=== PATIENT | female | born 1940 | race Caucasian/White ===

== ENCOUNTER 2017-11-08 16:45 | Inpatient (IN) | payer MEDICARE, OTHER ==
[~2017-11-08] VITALS: Ht 165.1 cm; Wt 77.1 kg
[~2017-11-08 16:45] MED LIST: ATOR20; CRUTCH USE; PROACE100 PO; SILSUL1TC TOP; TELM40
[2017-11-08] MEDS ORDERED: ASPI81CH (17:11)
[2017-11-08] MEDS ORDERED: ANAS1 PO (17:11)
[2017-11-08] MEDS ORDERED: RANI150 (17:23)
[2017-11-08] MEDS ORDERED: ROSU10TA PO (17:24)
[2017-11-08] MEDS ORDERED: VENL75ER (17:24)
[2017-11-08] MEDS ORDERED: TELM40 (17:24)
[2017-11-08 17:30] LABS: BASOPHILS ABSOLUTE AUTO 0.05 K/mm3 (0.00-0.23); BASOPHILS PERCENT AUTO 1 % (0-2); EOSINOPHILS ABSOLUTE AUTO 0.16 K/mm3 (0.00-0.68); EOSINOPHILS PERCENT AUTO 2 % (0-6); Hematocrit 26.6 % (33.0-51.0); IMMATURE GRAN ABSOLUTE AUTO 0.02 K/mm3 (0.00-0.10); IMMATURE GRAN PERCENT AUTO 0 % (0-1); LYMPHOCYTES ABSOLUTE AUTO 1.74 K/mm3 (0.84-5.20); LYMPHOCYTES PERCENT AUTO 19 % (21-46); MONOCYTES ABSOLUTE AUTO 1.09 K/mm3 (0.16-1.47); MONOCYTES PERCENT AUTO 12 % (4-13); Mean Corpuscular HGB 26.5 pg (26.0-34.0); Mean Corpuscular HGB Conc 30.1 g/dL (31.5-36.5); Mean Corpuscular Volume 88 fL (80-100); Mean Platelet Volume 9.2 fL (9.1-12.4); NEUTROPHILS ABSOLUTE AUTO 6.15 K/mm3 (1.96-9.15); NEUTROPHILS PERCENT AUTO 67 % (41-73); Platelet Count 379 K/mm3 (150-400); RDW Coefficient Variation 16.2 % (11.7-14.2); RDW Standard Deviation 52.7 fL (35.1-46.3); Red Blood Cell Count 3.02 M/mm3 (3.80-5.20); White Blood Cell Count 9.21 K/mm3 (4.00-11.30)
[2017-11-08 17:54] LABS: Alanine Aminotransfer (ALT/SGP 15 U/L (12-78); Albumin, Blood 3.5 g/dL (3.4-5.0); Albumin/Globulin Ratio 0.9 (0.8-1.8); Alk Phos 90 U/L (50-136); Anion Gap 9 mmol/L (6-16); Aspartate Aminotrans (AST/SGOT 14 U/L (12-37); Bilirubin, Total 0.4 mg/dL (0.1-1.0); Blood Urea Nitrogen 28 mg/dL (8-24); Bun/Creatinine Ratio 20.4 (12.0-20.0); CO2, Blood 24 mmol/L (21-32); Calcium, Blood 8.6 mg/dL (8.5-10.1); Chloride, Blood 107 mmol/L (98-108); Creatinine, Blood 1.37 mg/dL (0.40-1.00); Globulin, Blood 4.1 g/dL (2.2-4.0); Glomerular Filtration Rate 39 (60-); Glucose, Blood 120 mg/dL (70-99); Potassium, Blood 4.6 mmol/L (3.5-5.5); Sodium, Blood 140 mmol/L (136-145); Total Protein, Blood 7.6 g/dL (6.4-8.2); Troponin I <0.015 ng/mL (0.000-0.040)
[2017-11-08 17:57] LABS: Base Excess Venous -0.4 mmol/L; Bicarbonate Venous 23.8 mmol/L (24.0-30.0); PCO2 Venous 38.3 mmHg (38-42); PO2 Venous 37.9 mmHg (38-42); pH Blood Venous 7.41 (7.34-7.37)
[2017-11-08 21:10] LABS: Percent Saturation 2.5 % (15.0-50.0)
[2017-11-08] MEDS ORDERED: TELM40 PO (21:26)
[2017-11-08] MEDS ORDERED: INSULANPEN (23:18)
[2017-11-08] MEDS ORDERED: Hair, Skin & N1 EACH PO (23:19)
[2017-11-08] MEDS ORDERED: NASACORT10.8 ML (23:20)
[2017-11-08] MEDS ORDERED: CHOL10002 (23:22)
[2017-11-09 02:57] LABS: BASOPHILS ABSOLUTE AUTO 0.05 K/mm3 (0.00-0.23); BASOPHILS PERCENT AUTO 1 % (0-2); EOSINOPHILS ABSOLUTE AUTO 0.22 K/mm3 (0.00-0.68); EOSINOPHILS PERCENT AUTO 2 % (0-6); Hematocrit 28.4 % (33.0-51.0); Hemoglobin 8.9 g/dL (11.5-16.0); IMMATURE GRAN ABSOLUTE AUTO 0.02 K/mm3 (0.00-0.10); IMMATURE GRAN PERCENT AUTO 0 % (0-1); LYMPHOCYTES ABSOLUTE AUTO 3.26 K/mm3 (0.84-5.20); LYMPHOCYTES PERCENT AUTO 35 % (21-46); MONOCYTES ABSOLUTE AUTO 0.77 K/mm3 (0.16-1.47); MONOCYTES PERCENT AUTO 8 % (4-13); Mean Corpuscular HGB Conc 31.3 g/dL (31.5-36.5); Mean Corpuscular Volume 86 fL (80-100); Mean Platelet Volume 9.1 fL (9.1-12.4); NEUTROPHILS ABSOLUTE AUTO 4.94 K/mm3 (1.96-9.15); NEUTROPHILS PERCENT AUTO 53 % (41-73); Platelet Count 307 K/mm3 (150-400); RDW Coefficient Variation 15.5 % (11.7-14.2); RDW Standard Deviation 49.3 fL (35.1-46.3); White Blood Cell Count 9.26 K/mm3 (4.00-11.30)
[2017-11-09 03:10] LABS: International Normalized Ratio 1.05; Prothrombin Time Results 10.9 Sec (9.7-11.5)
[2017-11-09 03:19] LABS: Albumin, Blood 3.4 g/dL (3.4-5.0); Anion Gap 7 mmol/L (6-16); Blood Urea Nitrogen 22 mg/dL (8-24); Bun/Creatinine Ratio 20.8 (12.0-20.0); CO2, Blood 26 mmol/L (21-32); Calcium, Blood 8.1 mg/dL (8.5-10.1); Chloride, Blood 105 mmol/L (98-108); Creatinine, Blood 1.06 mg/dL (0.40-1.00); Glomerular Filtration Rate 53 (60-); Glucose, Blood 82 mg/dL (70-99); Phosphorus, Blood 2.7 mg/dL (2.5-4.9); Potassium, Blood 4.1 mmol/L (3.5-5.5); Sodium, Blood 138 mmol/L (136-145)
[2017-11-09 12:40] LABS: Hematocrit 29.5 % (33.0-51.0); Hemoglobin 9.2 g/dL (11.5-16.0)
== END 2017-11-09 19:00 | disposition home or self-care (01) | DRG 378 ==
LOC: ER 16:45 → PCU 19:29
PROVIDERS: Emergency Medicine; Family Medicine; Internal Medicine Gastroenterology
PROC: 0DJ08ZZ Inspection of Upper Intestinal Tract, Via Natural or Artificial Opening Endoscopic (ICD-10-PCS; principal; 2017-11-09 10:00)
DX: K29.61 Other gastritis with bleeding (principal); D62 Acute posthemorrhagic anemia; E11.22 Type 2 diabetes mellitus with diabetic chronic kidney disease; N18.3 Chronic kidney disease, stage 3 (moderate); K44.9 Diaphragmatic hernia without obstruction or gangrene; K25.4 Chronic or unspecified gastric ulcer with hemorrhage; K29.81 Duodenitis with bleeding; K22.2 Esophageal obstruction; I12.9 Hypertensive chronic kidney disease with stage 1 through stage 4 chronic kidney disease, or unspecified chronic kidney disease; G47.33 Obstructive sleep apnea (adult) (pediatric); M54.40 Lumbago with sciatica, unspecified side; E78.5 Hyperlipidemia, unspecified; Z87.891 Personal history of nicotine dependence; Z88.4 Allergy status to anesthetic agent; Z79.811 Long term (current) use of aromatase inhibitors; Z79.82 Long term (current) use of aspirin; Z79.4 Long term (current) use of insulin; Z79.899 Other long term (current) drug therapy
CPT/HCPCS: 36415; 36430; 71046; 80053; 80069; 82272; 82607; 82728; 82746; 82803; 82947; 83540; 83550; 83880; 84443; 84484; 85014; 85018; 85025; 85610; 86850; 86900; 86901; 86923; 93005; 93010; 94762; 96365; 96376; 99285; C9113; J2250; J7030; J7120; P9016

== ENCOUNTER 2018-01-15 11:31 | Day surgery (SDC) | payer MEDICARE, OTHER ==
[~2018-01-15] VITALS: Ht 152.4 cm; Wt 83.1 kg
[~2018-01-15 11:31] MED LIST changes: +ANAS1 PO; +ASPI81CH; +CHOL10002; +Hair, Skin & N1 EACH PO; +INSULANPEN; +NASACORT10.8 ML; +RANI150; +ROSU10TA PO; +TELM40 PO; +VENL75ER
== END 2018-01-15 14:05 | disposition home or self-care (01) ==
LOC: ORSCSDS 11:31
PROVIDERS: Internal Medicine Gastroenterology
PROC: 0DB68ZX Excision of Stomach, Via Natural or Artificial Opening Endoscopic, Diagnostic (ICD-10-PCS; principal; 2018-01-15 13:00)
PROC: 0DBP8ZX Excision of Rectum, Via Natural or Artificial Opening Endoscopic, Diagnostic (ICD-10-PCS; principal; 2018-01-15 13:00)
PROC: 0DB98ZX Excision of Duodenum, Via Natural or Artificial Opening Endoscopic, Diagnostic (ICD-10-PCS; principal; 2018-01-15 13:00)
PROC: 0DBK8ZX Excision of Ascending Colon, Via Natural or Artificial Opening Endoscopic, Diagnostic (ICD-10-PCS; principal; 2018-01-15 13:00)
DX: D64.9 Anemia, unspecified (principal); K29.70 Gastritis, unspecified, without bleeding; K44.9 Diaphragmatic hernia without obstruction or gangrene; Q40.8 Other specified congenital malformations of upper alimentary tract; D12.2 Benign neoplasm of ascending colon; K62.1 Rectal polyp; D37.4 Neoplasm of uncertain behavior of colon; K64.8 Other hemorrhoids; K57.30 Diverticulosis of large intestine without perforation or abscess without bleeding; K21.9 Gastro-esophageal reflux disease without esophagitis; E11.9 Type 2 diabetes mellitus without complications; E78.5 Hyperlipidemia, unspecified; I10 Essential (primary) hypertension; G47.33 Obstructive sleep apnea (adult) (pediatric); Z86.010 Personal history of colon polyps; Z87.11 Personal history of peptic ulcer disease; Z79.82 Long term (current) use of aspirin; Z79.4 Long term (current) use of insulin; Z79.899 Other long term (current) drug therapy; Z87.891 Personal history of nicotine dependence
CPT/HCPCS: 82947; 88305; 88342; J7120

== ENCOUNTER 2018-02-06 11:22 | Day surgery (SDC) | payer MEDICARE, OTHER ==
[~2018-02-06] VITALS: Ht 152.4 cm; Wt 86.4 kg
[2018-02-06] MEDS ORDERED: TELMISARTAN-HC1 EACH PO (12:18)
[2018-02-06] MEDS ORDERED: Stool Softener100 MG PO (12:19)
[2018-02-06] MEDS ORDERED: IRON150C PO (12:20)
[2018-02-06] MEDS ORDERED: PANT40 PO (12:22)
== END 2018-02-06 13:41 | disposition home or self-care (01) ==
LOC: ORSCSDS 11:22
PROVIDERS: Ophthalmology
PROC: 08RK3JZ Replacement of Left Lens with Synthetic Substitute, Percutaneous Approach (ICD-10-PCS; principal; 2018-02-06 13:00)
DX: H25.12 Age-related nuclear cataract, left eye (principal); E11.9 Type 2 diabetes mellitus without complications; I10 Essential (primary) hypertension; D64.9 Anemia, unspecified; E66.9 Obesity, unspecified; Z68.37 Body mass index [BMI] 37.0-37.9, adult; Z87.891 Personal history of nicotine dependence; Z79.82 Long term (current) use of aspirin; Z79.4 Long term (current) use of insulin; Z79.899 Other long term (current) drug therapy
CPT/HCPCS: 82947; J2250; J3010; V2632

== ENCOUNTER 2018-02-20 09:58 | Day surgery (SDC) | payer MEDICARE, OTHER ==
[~2018-02-20] VITALS: Ht 152.4 cm; Wt 84.7 kg
[~2018-02-20 09:58] MED LIST changes: +IRON150C PO; +PANT40 PO; +Stool Softener100 MG PO; +TELMISARTAN-HC1 EACH PO
== END 2018-02-20 12:26 | disposition home or self-care (01) ==
LOC: ORSCSDS 09:58
PROVIDERS: Ophthalmology
PROC: 08RJ3JZ Replacement of Right Lens with Synthetic Substitute, Percutaneous Approach (ICD-10-PCS; principal; 2018-02-20 12:00)
DX: H25.11 Age-related nuclear cataract, right eye (principal); H21.81 Floppy iris syndrome; E11.9 Type 2 diabetes mellitus without complications; I10 Essential (primary) hypertension; Z79.82 Long term (current) use of aspirin; Z79.4 Long term (current) use of insulin; Z79.899 Other long term (current) drug therapy
CPT/HCPCS: 82947; J2250; J3010; J7120; V2632

== ENCOUNTER 2020-10-04 09:16 | Day surgery (SDC) | payer MEDICARE, OTHER ==
[~2020-10-04] VITALS: Ht 152.4 cm; Wt 80.6 kg
[~2020-10-04 09:16] MED LIST changes: +Aspir 8181 MG PO; +BASAGLAR K100 UNIT/1; +Crestor40 MG PO; +DOCU100 PO; +METF500 PO; +MICARDIS HCT 41 EACH PO; +VENL75ER PO
--- NOTE | 2020-10-04 10:12 | NUR ---
10/04/20 Criss2 Yandel Lopez CALL LIGHT WITHIN REACH
== END 2020-10-04 12:20 | disposition home or self-care (01) ==
LOC: ORSCSDS 09:16
PROVIDERS: Ophthalmology
PROC: 080NXZZ Alteration of Right Upper Eyelid, External Approach (ICD-10-PCS; principal; 2020-10-04 11:15)
PROC: 080PXZZ Alteration of Left Upper Eyelid, External Approach (ICD-10-PCS; principal; 2020-10-04 11:15)
DX: H02.831 Dermatochalasis of right upper eyelid (principal); H02.834 Dermatochalasis of left upper eyelid; I10 Essential (primary) hypertension; E11.9 Type 2 diabetes mellitus without complications; E66.9 Obesity, unspecified; Z68.34 Body mass index [BMI] 34.0-34.9, adult; Z79.84 Long term (current) use of oral hypoglycemic drugs; Z79.899 Other long term (current) drug therapy; Z79.4 Long term (current) use of insulin
CPT/HCPCS: 82947; J2250; J2704; J3010; J7040

== ENCOUNTER 2025-02-22 14:29 | Observation (INO) | payer MEDICARE, OTHER ==
[~2025-02-22] VITALS: Ht 152.4 cm; Wt 66.2 kg
[2025-02-22] MEDS ORDERED: NS 1,000 ML BAG IR ONE (15:20)
[2025-02-22] MEDS ORDERED: NS 1,000 ML IV SCH (15:25)
[2025-02-22 15:46] LABS: Albumin, Blood 3.5 g/dL (3.4-5.0); Albumin/Globulin Ratio 0.9 (0.8-1.8); Bilirubin, Total 0.5 mg/dL (0.1-1.0); Bun/Creatinine Ratio 18.7 (12.0-20.0); Creatinine, Blood 1.34 mg/dL (0.40-1.00); Globulin, Blood 3.9 g/dL (2.2-4.0); Potassium, Blood 4.4 mmol/L (3.5-5.5); Total Protein, Blood 7.4 g/dL (6.4-8.2)
[2025-02-22 15:55] LABS: BASOPHILS ABSOLUTE AUTO 0.05 K/mm3 (0.00-0.23); BASOPHILS PERCENT AUTO 0 % (0-2); EOSINOPHILS ABSOLUTE AUTO 0.06 K/mm3 (0.00-0.68); EOSINOPHILS PERCENT AUTO 1 % (0-6); Hematocrit 27.1 % (33.0-51.0); Hemoglobin 7.9 g/dL (11.5-16.0); IMMATURE GRAN ABSOLUTE AUTO 0.08 K/mm3 (0.00-0.10); IMMATURE GRAN PERCENT AUTO 1 % (0-1); LYMPHOCYTES PERCENT AUTO 8 % (21-46); MONOCYTES ABSOLUTE AUTO 0.61 K/mm3 (0.16-1.47); MONOCYTES PERCENT AUTO 5 % (4-13); Mean Corpuscular HGB 23.6 pg (26.0-34.0); Mean Corpuscular HGB Conc 29.2 g/dL (31.5-36.5); Mean Corpuscular Volume 81 fL (80-100); Mean Platelet Volume 9.5 fL (9.1-12.4); NEUTROPHILS ABSOLUTE AUTO 9.65 K/mm3 (1.96-9.15); NEUTROPHILS PERCENT AUTO 85 % (41-73); Platelet Count 303 K/mm3 (150-400); RDW Standard Deviation 50.4 fL (35.1-46.3); Red Blood Cell Count 3.35 M/mm3 (3.80-5.20); White Blood Cell Count 11.35 K/mm3 (4.00-11.30)
[2025-02-22] MEDS ORDERED: Pantoprazole Sodium 40 MG Injection IV ONE (16:45)
[2025-02-22] MEDS ORDERED: HYDROCODONE-AC1 EA19 PO (20:01)
[2025-02-22] MEDS ORDERED: INSULANI SC (20:03)
[2025-02-22 20:07] VITALS: BP 117/50
[2025-02-22 20:21] LABS: Hematocrit 26.4 % (33.0-51.0); Hemoglobin 7.8 g/dL (11.5-16.0)
[2025-02-23] VITALS (10 sets, daily range): BP systolic 108–144; BP diastolic 51–78
--- NOTE | 2025-02-23 04:14 | NUR ---
PATIENT UP TO BATHROOM. WHEN SHE GOT BACK SHE STATES "I CAN'T WEAR THAT!" POINTING TO THE C-PAP. SHE HAD IT ON FOR ONLY A VERY SHORT TIME. O2 VIA NC WAS PLACED AT 3 LITERS.
[2025-02-23] MEDS ORDERED: Pantoprazole Sodium 40 MG Injection IV SCH (06:00)
--- NOTE | 2025-02-23 06:11 | NUR ---
85 Y/O FEMALE ADMITTED LAST NIGHT TO ROOM 301 FROM ED. PATIENT FELL WHILE WALKING INTO THE DENTIST OFFICE YESTERDAY. FOUND TO HAVE A LOW HGB AND HYPOTENSIVE. PATIENT IS ALERT, ORIENTATED. ABLE TO MAKE NEEDS KNOW. DOES NOT USUALLY WEAR O2 AT NIGHT BUT DESATS WHILE ASLEEP. C-PAP WAS PLACED ON PATIENT BUT SHE DID NOT WANT IT ON AND ASKED FOR IT TO BE TAKEN OFF. PATIENT IS WEAK WITH AMBULATION, NEEDS SBA AND A WALKER. ON TELE SR CLEAR LIQUID DIET. CONTINUE CARE
[2025-02-23 06:20] LABS: BASOPHILS ABSOLUTE AUTO 0.04 K/mm3 (0.00-0.23); BASOPHILS PERCENT AUTO 1 % (0-2); EOSINOPHILS ABSOLUTE AUTO 0.16 K/mm3 (0.00-0.68); EOSINOPHILS PERCENT AUTO 2 % (0-6); Hematocrit 24.2 % (33.0-51.0); Hemoglobin 7.2 g/dL (11.5-16.0); IMMATURE GRAN ABSOLUTE AUTO 0.03 K/mm3 (0.00-0.10); IMMATURE GRAN PERCENT AUTO 0 % (0-1); LYMPHOCYTES ABSOLUTE AUTO 0.97 K/mm3 (0.84-5.20); LYMPHOCYTES PERCENT AUTO 11 % (21-46); MONOCYTES ABSOLUTE AUTO 0.57 K/mm3 (0.16-1.47); MONOCYTES PERCENT AUTO 6 % (4-13); Mean Corpuscular HGB 23.2 pg (26.0-34.0); Mean Corpuscular HGB Conc 29.8 g/dL (31.5-36.5); Mean Corpuscular Volume 78 fL (80-100); Mean Platelet Volume 9.3 fL (9.1-12.4); NEUTROPHILS ABSOLUTE AUTO 7.08 K/mm3 (1.96-9.15); NEUTROPHILS PERCENT AUTO 80 % (41-73); Platelet Count 248 K/mm3 (150-400); RDW Coefficient Variation 17.1 % (11.7-14.2); White Blood Cell Count 8.85 K/mm3 (4.00-11.30)
[2025-02-23 06:45] LABS: Calcium, Blood 7.8 mg/dL (8.5-10.1); Creatinine, Blood 1.21 mg/dL (0.40-1.00); Potassium, Blood 3.9 mmol/L (3.5-5.5)
[2025-02-23] MEDS ORDERED: Insulin Regular 100 UNIT/ML 10ML Vial SC SCH (07:30)
[2025-02-23] MEDS ORDERED: Lactated Ringer's 1,000 ML IV SCH (08:35)
[2025-02-23] MEDS ORDERED: HYDROcodone 5-APAP 325 TAB PO PRN (09:10)
[2025-02-23] MEDS ORDERED: Sod Ferric Gluc Complx/Sucrose 125 MG in NS 100 ML IV SCH (09:11)
[2025-02-23] MEDS ORDERED: Anastrozole 1 MG TAB PO SCH (09:19)
[2025-02-23] MEDS ORDERED: Venlafaxine HCl 75 MG CapCR PO SCH (09:20)
[2025-02-23] MEDS ORDERED: NS 250 ML IV PRN (09:50)
[2025-02-23 12:25] LABS: Hematocrit 25.3 % (33.0-51.0); Hemoglobin 7.6 g/dL (11.5-16.0)
--- NOTE | 2025-02-23 14:03 | NUR ---
PT ABLE TO TRANSFER TO /C WITH STANDBY ASSISTANCE. History, Chart, Medications and Allergies reviewed before start of procedure. Pre-Op teaching done. Pt verbalizes understanding. Patient confirms NPO status and agrees with scheduled surgery. ALL BELONGINGS LEFT IN PT'S ROOM. PT HAS BACK PAIN OF 5/10 WHICH SHE REPORTS "BETTER THAN YESTERDAY". NO NAUSEA REPORTED.
[2025-02-23] MEDS ORDERED: propofoL 50 ML IV ONE (14:16)
--- NOTE | 2025-02-23 14:20 | NUR ---
02/23/25 1420 Vincent Flores History, Chart, Medications and Allergies reviewed before start of procedure. MONITOR INTACT WITH CONTINUOUS PULSE OXIMETRY, CONTINUOUS END TITAL CO2, 3-LEAD EKG AND INTERMITTENT BLOOD PRESSURE. 3-LEAD EKG REVIEWED WITH PHYSICIAN PRIOR TO START OF PROCEDURE. O2 VIA POM INTACT THROUGHOUT SEDATION/PROCEDURE. Bite Block Placed AT START OF PROCEDURE.
--- NOTE | 2025-02-23 17:38 | NUR ---
SUMMARY- PT AAOX4. PT REQUIRING 2L WHEN SLEEPING; PT REFUSES TO WEAR CPAP. PT ON RA WHILE AWAKE. PT'S BACK PAIN WELL CONTROLLED WITH EMAR PAIN MEDS. SBA TO BATHROOM. PT DENIES MELANA THIS SHIFT. NO OTHER S/S OF BLEEDING THIS SHIFT. NO ACUTE EVENTS THIS SHIFT.
[2025-02-23 18:12] LABS: Hemoglobin 7.4 g/dL (11.5-16.0)
[2025-02-24 04:17] VITALS: BP 131/54
--- NOTE | 2025-02-24 04:25 | NUR ---
PT A&O X4, VS WNL, TELE ST IN LOW 100'S, REFUSES CPAP AT NIGHT, WEARING O2 @ 2L TONIGHT. PT UP WITH ASSIST AND FWW. DOES FORGET TO CALL FOR ASSIST, BED ALARM IN USE D/T RECENT FALL. PT CBG 132 TOINIGHT NO COVERAGE NEEDED. PT NEEDS O2 HOME STUDY DONE. DENIED PAIN, AND NO DIZZINESS NOTED. WILL D/C BACK HOME WITH FAMILY.
[2025-02-24 04:34] LABS: BASOPHILS ABSOLUTE AUTO 0.05 K/mm3 (0.00-0.23); BASOPHILS PERCENT AUTO 1 % (0-2); EOSINOPHILS PERCENT AUTO 3 % (0-6); Hematocrit 24.4 % (33.0-51.0); Hemoglobin 7.3 g/dL (11.5-16.0); IMMATURE GRAN ABSOLUTE AUTO 0.05 K/mm3 (0.00-0.10); IMMATURE GRAN PERCENT AUTO 1 % (0-1); LYMPHOCYTES ABSOLUTE AUTO 1.08 K/mm3 (0.84-5.20); LYMPHOCYTES PERCENT AUTO 10 % (21-46); MONOCYTES ABSOLUTE AUTO 0.78 K/mm3 (0.16-1.47); MONOCYTES PERCENT AUTO 8 % (4-13); Mean Corpuscular HGB 23.7 pg (26.0-34.0); Mean Corpuscular HGB Conc 29.9 g/dL (31.5-36.5); Mean Corpuscular Volume 79 fL (80-100); Mean Platelet Volume 9.3 fL (9.1-12.4); NEUTROPHILS ABSOLUTE AUTO 8.09 K/mm3 (1.96-9.15); NEUTROPHILS PERCENT AUTO 78 % (41-73); NRBC ABSOLUTE 0.02 K/mm3 (0.00-0.02); NRBC Auto 0.2 /100 WBC (0.0-0.2); Platelet Count 242 K/mm3 (150-400); RDW Coefficient Variation 17.1 % (11.7-14.2); RDW Standard Deviation 49.6 fL (35.1-46.3); Red Blood Cell Count 3.08 M/mm3 (3.80-5.20); White Blood Cell Count 10.35 K/mm3 (4.00-11.30)
[2025-02-24 04:50] LABS: Bun/Creatinine Ratio 15.3 (12.0-20.0); Calcium, Blood 8.3 mg/dL (8.5-10.1); Creatinine, Blood 1.31 mg/dL (0.40-1.00)
[2025-02-24 07:11] VITALS: BP 126/59
[2025-02-24] MEDS ORDERED: Rosuvastatin Calcium 10 MG Tab PO SCH (09:00)
[2025-02-24 10:00] LABS: Hemoglobin 7.5 g/dL (11.5-16.0)
[2025-02-24 15:54] VITALS: BP 120/62
--- NOTE | 2025-02-24 18:23 | NUR ---
SUMMARY- PT AAOX4. SBA-X1 ASSIST TO BATHROOM. EMAR PAIN MEDS HELPED TO CONTROL PT'S BACK PAIN. PT NEEDS 2-3L O2 VIA NC WHEN SLEEPING. PT REFUSES TO WEAR CPAP. NO ACUTE EVENTS THIS SHIFT. NO S/S OF BLEEDING; PT DENIES MELANA THIS SHIFT.
[2025-02-24 19:49] VITALS: BP 117/55
[2025-02-25 00:01] VITALS: BP 111/61
--- NOTE | 2025-02-25 02:47 | NUR ---
SHIFT SUMMARY NO ACUTE EVENTS DURING THIS SHIFT. TELE SR @96. PT DENIES PAIN AND DISCOMFROT. SLEEP STUDY IN PROGRESS DURING THIS SHIFT. RA @BASELINE, Q2 HAVE BEEN 2-3L VIA NASAL CANNULA PRIOR TO SLEEP STUDY DURING THE HOSPITAL STAY. HS B. @HS PT REPORTS DOES NOT NEED HOMEHEALTH. PLAN IS TO D/C HOME TODAY. LAB WORK THIS AM. LAST HGB 7.5 (02/24/25). BED AT THE LOWEST POSITION, CALL LIGHT W/I REACH. PT IS A/O X4, PLEASANT AND COOPERATIVE WITH CARE. PT IS ABLE TO MAKE HER NEEDS KNOWN.
[2025-02-25 04:10] VITALS: BP 112/60
[2025-02-25 06:01] LABS: BASOPHILS ABSOLUTE AUTO 0.05 K/mm3 (0.00-0.23); BASOPHILS PERCENT AUTO 1 % (0-2); EOSINOPHILS ABSOLUTE AUTO 0.24 K/mm3 (0.00-0.68); EOSINOPHILS PERCENT AUTO 2 % (0-6); Hematocrit 25.7 % (33.0-51.0); Hemoglobin 7.3 g/dL (11.5-16.0); IMMATURE GRAN ABSOLUTE AUTO 0.07 K/mm3 (0.00-0.10); IMMATURE GRAN PERCENT AUTO 1 % (0-1); LYMPHOCYTES ABSOLUTE AUTO 1.08 K/mm3 (0.84-5.20); LYMPHOCYTES PERCENT AUTO 10 % (21-46); MONOCYTES PERCENT AUTO 7 % (4-13); Mean Corpuscular HGB Conc 28.4 g/dL (31.5-36.5); Mean Corpuscular Volume 81 fL (80-100); Mean Platelet Volume 9.6 fL (9.1-12.4); NEUTROPHILS ABSOLUTE AUTO 8.67 K/mm3 (1.96-9.15); NEUTROPHILS PERCENT AUTO 80 % (41-73); Platelet Count 252 K/mm3 (150-400); RDW Coefficient Variation 17.5 % (11.7-14.2); RDW Standard Deviation 51.6 fL (35.1-46.3); Red Blood Cell Count 3.18 M/mm3 (3.80-5.20); White Blood Cell Count 10.81 K/mm3 (4.00-11.30)
[2025-02-25 06:27] LABS: Bun/Creatinine Ratio 20.3 (12.0-20.0); Calcium, Blood 8.3 mg/dL (8.5-10.1); Creatinine, Blood 1.33 mg/dL (0.40-1.00)
[2025-02-25 07:21] VITALS: BP 111/54
[2025-02-25 12:07] VITALS: BP 119/69
[2025-02-25] MEDS ORDERED: OMEP20ER PO (13:07)
--- NOTE | 2025-02-25 17:34 | NUR ---
DISCHARGE: PT D/C @ 1725 VIA WHEELCHAIR WITH . HOME OXYGEN DELIVERED PRIOR TO D/C REQUIRING ONE UNIT. ONLY NEW MEDICATION WAS OMEPRAZOLE. 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 TELE SENT BACK. IV REMOVED BY CULINARY ARTIST W/O COMPLICATIONS. NO QUESTIONS AT TIME OF D/C.
== END 2025-02-25 17:25 | disposition home or self-care (01) ==
LOC: ER 14:29 → MEDS 14:30
PROVIDERS: Student in an Organized Health Care Education/Training Program; Surgery; ADMIT Family Medicine
PROC: 0DJ08ZZ Inspection of Upper Intestinal Tract, Via Natural or Artificial Opening Endoscopic (ICD-10-PCS; principal; 2025-02-23 14:30)
DX: D50.9 Iron deficiency anemia, unspecified (principal); K92.1 Melena; K44.9 Diaphragmatic hernia without obstruction or gangrene; K29.70 Gastritis, unspecified, without bleeding; I95.1 Orthostatic hypotension; E87.1 Hypo-osmolality and hyponatremia; I12.9 Hypertensive chronic kidney disease with stage 1 through stage 4 chronic kidney disease, or unspecified chronic kidney disease; E11.22 Type 2 diabetes mellitus with diabetic chronic kidney disease; N18.30 Chronic kidney disease, stage 3 unspecified; I48.0 Paroxysmal atrial fibrillation; G47.30 Sleep apnea, unspecified; E78.5 Hyperlipidemia, unspecified; M48.56XA Collapsed vertebra, not elsewhere classified, lumbar region, initial encounter for fracture; Z99.81 Dependence on supplemental oxygen; Z87.891 Personal history of nicotine dependence; Z91.040 Latex allergy status; Z88.5 Allergy status to narcotic agent; Z88.8 Allergy status to other drugs, medicaments and biological substances; Z91.048 Other nonmedicinal substance allergy status; Z79.82 Long term (current) use of aspirin; Z79.4 Long term (current) use of insulin; Z79.84 Long term (current) use of oral hypoglycemic drugs; Z79.899 Other long term (current) drug therapy
CPT/HCPCS: 36415; 70450; 80048; 80053; 82272; 82607; 82728; 82746; 82947; 83540; 83550; 85014; 85018; 85025; 93005; 93010; 94660; 94761; 94762; 96361; 96365; 96374; 96375; 96376; 97116; 97161; 97530; 99285-25; A9270; G0378; J1815; J2470; J2704; J2916; J7030; J7120

== ENCOUNTER 2025-03-03 15:30 | Emergency (ER) | payer MEDICARE, OTHER ==
[~2025-03-03] VITALS: Ht 152.4 cm; Wt 63.5 kg
[~2025-03-03 15:30] MED LIST changes: +HYDROCODONE-AC1 EA19 PO; +INSULANI SC; +OMEP20ER PO
[2025-03-03 16:15] LABS: Source, Urine Voided
[2025-03-03 16:24] LABS: Appearance, Urine Cloudy (Clear); Bilirubin, Urine Neg (Neg); Blood, Urine 2+ (Neg); Color, Urine Yellow (P-Yellow); Glucose Qualitative, Urine Neg (Neg); Ketones, Urine 1+ (Neg); Leukocyte Esterase, Urine 3+ (Neg); Nitrite, Urine Pos (Neg); Protein, Urine 2+ (Neg); Specific Gravity, Urine 1.025 (1.003-1.022); Urobilinogen, Urine NORM (Normal)
[2025-03-03 16:39] LABS: Bacteria Many /hpf; Red Blood Cells, Urine 0-2 /hpf (0-2); Squamous Epithelial Cells Rare /hpf (Few); Transitional Epithelial Cells Few /hpf (0-Rare); White Blood Cells, Urine TNTC /hpf (0-5)
[2025-03-03 17:07] LABS: Albumin, Blood 3.2 g/dL (3.4-5.0); Albumin/Globulin Ratio 0.7 (0.8-1.8); Bilirubin, Total 0.4 mg/dL (0.1-1.0); Bun/Creatinine Ratio 39.1 (12.0-20.0); Calcium, Blood 9.6 mg/dL (8.5-10.1); Creatinine, Blood 0.97 mg/dL (0.40-1.00); Globulin, Blood 4.5 g/dL (2.2-4.0); Potassium, Blood 3.9 mmol/L (3.5-5.5); Total Protein, Blood 7.7 g/dL (6.4-8.2)
[2025-03-03] MEDS ORDERED: Cephalexin Monohydrate 500 MG Cap PO ONE (19:35)
[2025-03-03] MEDS ORDERED: RX Prepack 6 Tabs Oxycodone 5mg UD ONE (19:35)
[2025-03-03 19:39] LABS: BASOPHILS ABSOLUTE AUTO 0.08 K/mm3 (0.00-0.23); BASOPHILS PERCENT AUTO 1 % (0-2); EOSINOPHILS PERCENT AUTO 1 % (0-6); Hematocrit 29.4 % (33.0-51.0); Hemoglobin 8.9 g/dL (11.5-16.0); IMMATURE GRAN ABSOLUTE AUTO 0.07 K/mm3 (0.00-0.10); IMMATURE GRAN PERCENT AUTO 1 % (0-1); LYMPHOCYTES ABSOLUTE AUTO 1.36 K/mm3 (0.84-5.20); LYMPHOCYTES PERCENT AUTO 14 % (21-46); MONOCYTES ABSOLUTE AUTO 0.72 K/mm3 (0.16-1.47); MONOCYTES PERCENT AUTO 8 % (4-13); Mean Corpuscular HGB 24.2 pg (26.0-34.0); Mean Corpuscular HGB Conc 30.3 g/dL (31.5-36.5); Mean Corpuscular Volume 80 fL (80-100); NEUTROPHILS ABSOLUTE AUTO 7.25 K/mm3 (1.96-9.15); NEUTROPHILS PERCENT AUTO 76 % (41-73); RDW Coefficient Variation 21.2 % (11.7-14.2); RDW Standard Deviation 55.1 fL (35.1-46.3); Red Blood Cell Count 3.68 M/mm3 (3.80-5.20); White Blood Cell Count 9.58 K/mm3 (4.00-11.30)
[2025-03-03] MEDS ORDERED: CEPH500 PO (19:41)
[2025-03-03 19:51] VITALS: BP 157/82
[2025-03-03 20:13] LABS: Mean Platelet Volume 9.9 fL (9.1-12.4); Platelet Count 362 K/mm3 (150-400)
== END 2025-03-03 19:55 | disposition home or self-care (01) ==
LOC: ER 15:30
PROVIDERS: Emergency Medicine
DX: M80.08XA Age-related osteoporosis with current pathological fracture, vertebra(e), initial encounter for fracture (principal); N39.0 Urinary tract infection, site not specified; Z91.040 Latex allergy status; Z91.09 Other allergy status, other than to drugs and biological substances; Z88.8 Allergy status to other drugs, medicaments and biological substances; Z79.4 Long term (current) use of insulin; Z79.84 Long term (current) use of oral hypoglycemic drugs; Z79.899 Other long term (current) drug therapy; Z87.891 Personal history of nicotine dependence
CPT/HCPCS: 72131; 80053; 81001; 85025; 87077; 87086; 87186; 99284-25; A9270

== ENCOUNTER 2025-03-04 15:35 | Emergency (ER) | payer MEDICARE, OTHER ==
[~2025-03-04] VITALS: Ht 152.4 cm; Wt 66.7 kg
[~2025-03-04 15:35] MED LIST changes: +CEPH500 PO
[2025-03-05 00:06] VITALS: BP 148/72
== END 2025-03-05 00:07 | disposition home or self-care (01) ==
LOC: ER 15:35
DX: R10.2 Pelvic and perineal pain (principal); N39.0 Urinary tract infection, site not specified; M48.56XA Collapsed vertebra, not elsewhere classified, lumbar region, initial encounter for fracture; K59.00 Constipation, unspecified; I10 Essential (primary) hypertension; E11.9 Type 2 diabetes mellitus without complications; E78.5 Hyperlipidemia, unspecified; G47.30 Sleep apnea, unspecified; I48.0 Paroxysmal atrial fibrillation; Z91.040 Latex allergy status; Z88.8 Allergy status to other drugs, medicaments and biological substances; Z79.4 Long term (current) use of insulin; Z79.84 Long term (current) use of oral hypoglycemic drugs; Z79.2 Long term (current) use of antibiotics; Z79.899 Other long term (current) drug therapy
CPT/HCPCS: 72192; 99284-25

== ENCOUNTER 2025-05-31 00:23 | Day surgery (SDC) | payer MEDICARE, OTHER ==
[2025-05-31 14:42] VITALS: BP 120/73; BP 96/56
[2025-05-31] MEDS ORDERED: Calcium Carbon500 MG PO (16:18)
[2025-05-31] MEDS ORDERED: FERROCITE324 MG PO (16:19)
[2025-05-31] MEDS ORDERED: [UNRECOGNIZED DRUG - OTHER] PO (16:20)
[2025-05-31] MEDS ORDERED: VITAMIN D5000 UNIT PO (16:20)
[2025-05-31] MEDS ORDERED: LUTEIN PO (16:20)
== END 2025-05-31 14:54 | disposition home or self-care (01) ==
LOC: ATC 00:23
DX: M81.0 Age-related osteoporosis without current pathological fracture (principal); I12.9 Hypertensive chronic kidney disease with stage 1 through stage 4 chronic kidney disease, or unspecified chronic kidney disease; E11.22 Type 2 diabetes mellitus with diabetic chronic kidney disease; N18.30 Chronic kidney disease, stage 3 unspecified; Z88.8 Allergy status to other drugs, medicaments and biological substances; Z79.4 Long term (current) use of insulin; Z79.899 Other long term (current) drug therapy; Z87.891 Personal history of nicotine dependence
CPT/HCPCS: 96374; J3489

== ENCOUNTER 2025-08-27 06:06 | Day surgery (SDC) | payer MEDICARE, OTHER ==
[~2025-08-27] VITALS: Ht 154.9 cm; Wt 63.6 kg
[~2025-08-27 06:06] MED LIST changes: +Calcium Carbon500 MG PO; +FERROCITE324 MG PO; +LUTEIN PO; +VITAMIN D5000 UNIT PO; +[UNRECOGNIZED DRUG - OTHER] PO
[2025-08-27] MEDS ORDERED: NS 1,000 ML IV ONE ×2 (06:42→06:59)
[2025-08-27 06:45] VITALS: BP 111/67
[2025-08-27] MEDS ORDERED: Flumazenil 0.1 MG / ML 5ML Vial ONE (06:58)
[2025-08-27] MEDS ORDERED: Naloxone HCl 0.4MG / ML 1ML Vial ONE (06:58)
[2025-08-27] MEDS ORDERED: Midazolam HCl 1MG / ML 2ML Vial ONE (06:59)
[2025-08-27] MEDS ORDERED: FentaNYL Citrate 50 MCG/ML 2 ML Injection ONE (06:59)
[2025-08-27 09:13] VITALS: BP 135/86
[2025-08-27 09:30] VITALS: BP 140/83
[2025-08-27 09:45] VITALS: BP 121/63
[2025-08-27 10:00] VITALS: BP 129/70
--- NOTE | 2025-08-27 11:02 | NUR ---
PT AND VERBALIZED UNDERSTANDING OF WRITTEN AND VERBAL D/C INST. L FLANK DRSG CDI. NEG BLEEDING OR SWELLING. IV REMOVED. PT TAKEN OUT OF THE HRT CENTER VIA W/C.
== END 2025-08-27 23:00 | disposition home or self-care (01) ==
LOC: MHTC 06:06 → CT 07:00 → MHTC 23:00
DX: C64.2 Malignant neoplasm of left kidney, except renal pelvis (principal); N18.32 Chronic kidney disease, stage 3b
CPT/HCPCS: 50593; 77013; 99152; 99153; C2618; J2250; J2312; J3010; J7030; Q9967